=== PATIENT | female | born 1965 ===

== ENCOUNTER 2022-10-26 06:31 | Outpatient (CLI) | payer OTHER ==
[~2022-10-26 06:31] MED LIST: SURFAK240 M1 PO; ULTRAM50 MG PO
== END 2022-10-26 06:38 | disposition home or self-care (01) ==
LOC: LAB 06:31
PROVIDERS: ATTEND Surgery
DX: E55.9 Vitamin D deficiency, unspecified (principal); M85.9 Disorder of bone density and structure, unspecified; E56.1 Deficiency of vitamin K